=== PATIENT | male | born 1945 ===

== ENCOUNTER 2025-04-13 10:54 | Emergency (ER) | payer OTHER, SELFPAY ==
--- NOTE | ~2025-04-13 | XR_ITS ---
CLINICAL HISTORY: pain, swelling Radiographs of the left hand, 3 views, 4 images Comparison: None available Findings: No fracture or dislocation. No cortical destruction or periostitis to indicate osteomyelitis. Mild degenerative change. Soft tissue swelling. Impression: No acute osseous abnormality. This document has been electronically signed by: Eloise Schrader MD on 04/13/2025 14:35:24
[2025-04-13 11:02] VITALS: BP 164/102; BP 170/78; PULSE 76; PULSE 83; RESP 16; TEMP 36.8; O2SAT 97; O2SAT 98; BMI 26.9
[2025-04-13 11:19] VITALS: BP 170/78; PULSE 83; RESP 16; TEMP 36.8; O2SAT 97
--- NOTE | 2025-04-13 11:59 | ED.GENADULT ---
HPI - General Adult General Chief complaint: Extremity Problem Stated complaint: L HAND SWELLING,NO INJURY FROM SKILLED NURSING PER EMS Time Seen by Provider: 04/13/25 11:05 Source: patient, RN notes reviewed and old records reviewed Mode of arrival: EMS Limitations: no limitations History of Present Illness ED Provider: BRAYAN Mayes HPI narrative: 80-year-old male with medical history of HTN, HLD, TIA, cerebral infarction without residual deficits, gout, presents to the ED due to pain, warmth and swelling to the left hand for the past 2 days. Patient states swelling began after eating tuna fish which he is allergic to and believes this is what is causing his symptoms. Denies injury/trauma to the area. Denies chest pain, shortness of breath, abdominal pain, nausea, vomiting, fevers MD complaint: L hand pain Related Data Home Medications ?Medication ?Instructions ?Recorded ?Confirmed allopurinol 100 mg tablet 100 mg PO DAILY@79904/13/25 04/13/25 aspirin 81 mg tablet 81 mg PO DAILY@79904/13/25 04/13/25 atorvastatin 80 mg tablet 80 mg PO DAILY@199904/13/25 04/13/25 docusate sodium 100 mg capsule 100 mg PO DAILY PRN Constipation 04/13/25 04/13/25 furosemide 40 mg tablet 40 mg PO DAILY@79904/13/25 04/13/25 hydralazine 50 mg tablet 50 mg PO TID@0800,1200,199904/13/25 04/13/25 tamsulosin 0.4 mg capsule 0.4 mg PO DAILY@0800 04/13/25 04/13/25 Previous Rx's ?Medication ?Instructions ?Recorded cephalexin 500 mg capsule 500 mg PO BID 7 days #14 caps 04/13/25 prednisone 20 mg tablet 40 mg (2 x 20 mg) PO BID 5 days 04/13/25 #20 tabs Allergies Allergy/AdvReac Type Severity Reaction Status Date / Time shellfish derived (shellfish) Allergy Swelling Verified 04/13/25 11:09 [facility] Past Medical History Attestation statement: The following information was validated with the patient. Source: old records reviewed and nursing notes reviewed Social History Social History Smoked in Last 30 Days: No Use of substances other than those prescribed or required for medical reasons: No Advance Directives: No Advance Directives Information Provided: Yes Do you have a plan to hurt others: No Plan Physical Exam ED Vital Signs: Vital Signs - 24 hr 04/13/25 11:02 04/13/25 11:19 Temperature 98.2 F 98.2 F Pulse Rate 83 83 Respiratory Rate 16 16 Blood Pressure 170/78 H 170/78 H Pulse Oximetry 97 97 Oxygen Delivery Method Room Air Room Air BMI result Body Mass Index 26.9 GENERAL APPEARANCE: ?AxOx4, generally well-appearing, no acute distress. HEENT: ?NC, AT. MMM. EOMI, clear conjunctiva, oropharynx clear. NECK: ?Supple without lymphadenopathy.? No stiffness or restricted ROM. HEART:? Normal rate and regular rhythm, normal S1/S2, no m/r/g LUNGS:? CTAB, moving air well. No crackles or wheezes are heard. ABDOMEN: ?Soft, nontender, nondistended with good bowel sounds heard. BACK: No CVAT, no obvious deformity. EXTREMITIES: ?Without cyanosis, clubbing or edema. TTP of dorsal L hand, with warmth, mild erythema and edema most significant over 2nd/3rd MCP region, ROM intact but has significant pain when attempting to flex the fingers, SILT, radial pulse 2+ NEUROLOGICAL: ?Grossly nonfocal. Alert and oriented, moving all 4 extremities. Observed to ambulate with normal gait. Skin: ?Warm and dry without any rash. Medications Administered Discontinued Medications Generic Name Dose Route Start Last Admin Trade Name Freq PRN Reason Stop Dose Admin Acetaminophen 975 mg 04/13/25 15:28 04/13/25 16:06 Acetaminophen 325 Mg Tablet PO 04/13/25 15:29 975 mg ONCE ONE Administration Lactated Ringer's 1,000 mls @ 500 mls/hr 04/13/25 15:32 04/13/25 16:06 Lr IV 04/13/25 17:31 500 mls/hr .Q2H ONE Administration Prednisone 40 mg 04/13/25 15:28 04/13/25 16:06 Prednisone 20 Mg Tablet PO 04/13/25 15:29 40 mg ONCE ONE Administration Medical Decision Making Medical Decision Making MDM Narrative: 80-year-old male with medical history of presents to the ED due to pain, warmth and swelling to the left hand for the past 2 days which began after eating tuna fish that he is allergic to and believes is causing his symptoms. Has warmth to the area, and pain when flexing the fingers. Labs without leukocytosis/leukopenia, H&H stable, ESR and CRP WNL, creatinine elevated at 1.57, I did obtain records from [facility] that show creatinine was 1.39 in 07/2019, according to KDIGO MAGDALENA definition this is not a significant elevation showing MAGDALENA- patient was given gentle fluids for hydration. XR L hand negative for fracture, dislocation, however does show mild degenerative changes, and soft tissue swelling. Patient will be discharged with 7 day course of Keflex, and 5 day course of prednisone to cover for cellulitis, or possible gout. Patient afebrile, no elevated WBC count, is able to range the hand, less likely septic arthritis. Patient states when he has gout flare it is usually in his large toe and knee, has never had gout in the hand before. ROM is intact, opposition intact, SILT. Patient was medicated with 975 mg of p.o. Tylenol, 40 mg prednisone with some relief of his symptoms. Patient does not have a primary care doctor to follow up with at this time. I counseled patient on strict return precautions. Patient is in agreement with the plan Differential Diagnosis Differential Diagnoses: The differential diagnosis associated with the presentation includes Septic arthritis Gout Cellulitis Admission/Observation Consideration of admission/observation: Escalation of care including admission/observation considered Lab Data MDM Lab Attestation statement: I reviewed the patient's lab results. 04/13/25 13:33 04/13/25 13:17 Labs: Lab Results 04/13/25 04/13/25 Range/Units 13:17 13:33 WBC 7.2 (4.8-10.8) X10*3/uL RBC 3.98 L (4.60-5.80) X10*6/uL Hgb 12.3 L (14.0-18.0) g/dl Hct 37.6 L (42.0-52.0) % MCV 94.5 (80.0-98.0) fL MCH 30.9 (27.0-33.0) pg MCHC 32.7 (31.0-36.0) g/dl RDW 13.5 (11.0-16.0) % Plt Count 163 (160-400) X10*3/uL MPV 10.4 (9.4-12.4) fL Immature Gran % (Auto) 0.4 (0.0-0.4) % Neut % (Auto) 69.5 (45-73) % Lymph % (Auto) 17.4 L (20-40) % Bacon % (Auto) 9.3 (2-11) % Eos % (Auto) 3.0 (0-4) % Baso % (Auto) 0.4 (0-2) % Lymph # (Auto) 1.3 (1.2-4.9) X10*3/uL Bacon # (Auto) 0.7 (0.1-1.2) X10*3/uL Eos # (Auto) 0.2 (0.0-0.4) X10*3/uL Baso # (Auto) 0.0 (0.0-0.2) X10*3/uL Abs Immat Gran (auto) 0.03 (0.00-0.03) X10*3/uL Absolute Neuts (auto) 5.0 (2.0-8.3) x10*3/uL Absolute Nucleated RBC 0.000 (0.0-0.012) X10*3/uL Nucleated RBC % (auto) 0.0 (0.0-0.2) /100WBC ESR 15 (0-15) MM/HR Sodium 139 (135-145) mmol/L Potassium 4.1 (3.3-5.1) mmol/L Chloride 109 H (96-108) mmol/L Carbon Dioxide 22 (22-29) mmol/L Anion Gap 12 (12-20) BUN 32 H (9-16) mg/dL Creatinine 1.57 H (0.5-1.4) mg/dL Estim Creat Clear Calc 31.5 Estimated GFR 43 Random Glucose 92 (60-115) mg/dL Calcium 8.9 (8.4-10.2) mg/dL Magnesium 2.5 (1.6-2.6) mg/dL Total Bilirubin 0.4 (0.0-1.0) mg/dL AST 20 (5-37) U/L ALT 13 (0-40) U/L Alkaline Phosphatase 65 (39-117) U/L C-Reactive Protein 0.27 (< or = 0.50) mg/dL C-React Prot High Sens Cancelled Total Protein 7.3 (6.5-8.0) g/dL Albumin 3.6 (3.5-5.0) g/dL Independent Interpretation I performed an independent interpretation of an: Plain X-Ray Interpretation: I personally interpreted the XR L hand which was negative for fracture, dislocation, large joint effusion, I agree with the radiologist's interpretation Radiology Impression Discussion of test interpretation with radiology: I have reviewed the radiologist's reading. Radiologist Impression: XR L hand Findings: No fracture or dislocation. No cortical destruction or periostitis to indicate osteomyelitis. Mild degenerative change. Soft tissue swelling. Impression: No acute osseous abnormality. This document has been electronically signed by: Eloise Schrader MD on 04/13/2025 14:35:24 Dictated By: Eloise Mercedes MD Signed By: <Electronically signed by Eloise Mercedes MD in OV> 04/13/25 1436 Independent Historian Clinical information obtained from an independent historian. History obtained from or confirmed by: EMS External Record Review External record reviewed: Inpatient record, Office record and Outpatient record Chronic Conditions Patient?s care impacted by: Hypertension and Other (HLD, TIA, cerebral infarction without residual deficits, gout) Social Determinants Patient?s care significantly limited by Social Determinants of Health including: Other Social Determinant of Health Discharge Plan Discharge Clinical Impression: Gout, Cellulitis Patient Disposition: Home, Self-Care Additional Instructions: You were evaluated in the ED today due to pain of the left hand. You are being prescribed a 7 day course of Keflex which is an antibiotic to cover for infection, and a 5 day course of 40 mg prednisone to cover for inflammation. Additionally, you can take 500 mg of Tylenol every 6 hours to manage pain at home. Please return to the emergency department if you have worsening pain in left hand, increasing warmth, redness, stiffness in the hand, inability to move the hand, loss of sensation in the hand, chest pain, shortness of breath, fevers over 100.4?, or any new/worsening/concerning symptoms. Prescriptions: New cephalexin 500 mg capsule 500 mg PO BID 7 Days Qty: 14 0RF prednisone 20 mg tablet 40 mg PO BID 5 Days Qty: 20 0RF No Action furosemide 40 mg Tablet 40 mg PO DAILY@0800 atorvastatin 80 mg Tablet 80 mg PO DAILY@2000 allopurinol 100 mg tablet 100 mg PO DAILY@0800 tamsulosin 0.4 mg Capsule 0.4 mg PO DAILY@0800 docusate sodium 100 mg Capsule 100 mg PO DAILY PRN (Reason: Constipation) hydralazine 50 mg Tablet 50 mg PO TID@0800,1200,2000 aspirin 81 mg Tablet 81 mg PO DAILY@0800 Print Language: Citizen [place]
--- OUTSIDE RECORDS SUMMARY | 2025-04-13 12:08 | XMS_ITS | Encounter Summary ---
Author Organization [facility] Address [address] [place] [address] Care Team Providers Care Aeronautics Teacher Name Role Phone Luis Enrique Elliott Primary Care Provider [phone] Encounter Details Date Type Department Care Team (Late st Contact Info) Description 12/31/2024 Lab Requisition [facility] - Main Lab [address] [facility] [place] [address] Luis Enrique Elliott PA PCCP [address] [facility] [address] [place], [place] [id number] Essential (primary) hypertension; Chronic kidney disease, unspecified; Benign prostatic hyperplasia without lower urinary tract symptoms; Vitamin D deficiency, unspecified; Hypothyroidism, unspecified; Type 2 diabetes mellitus without complications ([facility] V24, [facility] V28) Social History Tobacco Use Types Packs/Day Years Used Date Smoking Tobacco: Never Assessed Interpersonal Safety Answer Date Record ed Physical Abuse 01/04/2025 Verbal Abuse 01/04/2025 Sex and Gender Information Value Date Recorded Sex Assigned at Not on file Legal Sex Male 3:04 AM EST Gender Identity Not on file Sexual Orientation Not on file documented as of this encounter Plan of Treatment Not on file documented as of this encounter Procedures Procedure Name Priority Date/Time Associated Diagnosis Comments BASIC METABOLIC PANEL Routine 01/01/2025 6:58 AM EDT Essential (primary) hypertension Chronic kidney disease, unspecified Benign prostatic hyperplasia without lower urinary tract symptoms Vitamin D deficiency, unspecified Hypothyroidism, unspecified Type 2 diabetes mellitus without complications (CMS/[facility] V24, [facility] V28) documented in this encounter Results * (ABNORMAL) Basic metabolic panel (01/01/2025 6:58 AM EDT) Sodium 141 133 - 145 mmol/L LAB CHEMISTRY METHOD 01/01/2025 8:41 AM [facility] Potassium 3.8 3.5 - 5.5 mmol/L LAB CHEMISTRY METHOD 01/01/2025 8:41 AM [facility] Chloride 107 96 - 110 mmol/L LAB CHEMISTRY METHOD 01/01/2025 8:41 AM [facility] CO2 29 21 - 32 mmol/L LAB CHEMISTRY METHOD 01/01/2025 8:41 AM [facility] Anion Gap 5 3 - 11 LAB CHEMISTRY METHOD 01/01/2025 8:41 AM [facility] Glucose 85 70 - 100 mg/dL LAB CHEMISTRY METHOD 01/01/2025 8:41 AM [facility] BUN 37(H) 5 - 25 mg/dL LAB CHEMISTRY METHOD 01/01/2025 8:41 AM [facility] Creatinine 1.75(H) 0.70 - 1.30 mg/dL LAB CHEMISTRY METHOD 01/01/2025 8:41 AM [facility] eGFR 39(L) >=60 mL/min/1. 73m2 LAB CHEMISTRY METHOD 01/01/2025 8:41 AM [facility] Comment:Calculation based on the Chronic Kidney Disease Epidemiology Collaboration (CKD-EPI) equation refit without adjustment for race. BUN/Creatinine Ratio 21.1 LAB CHEMISTRY METHOD 01/01/2025 8:41 AM [facility] Calcium 9.1 8.5 - 10.5 mg/dL LAB CHEMISTRY METHOD 01/01/2025 8:41 AM [facility] Blood Venous blood specimen / Unknown Venipuncture / Unknown 01/01/2025 6:58 AM EDT 01/01/2025 7:55 AM EDT Luis Enrique ART LAB BLOOD ORDERABLES Rachael l Result [facility] [address] [place] [address], documented in this encounter Visit Diagnoses Diagnosis Essential (primary) hypertension Unspecified essential hypertension Chronic kidney disease, unspecified Benign prostatic hyperplasia without lower urinary tract symptoms Vitamin D deficiency, unspecified Hypothyroidism, unspecified Type 2 diabetes mellitus without complications (CMS/HCC V24, CMS/HCC V28) documented in this encounter Care Teams Aeronautics Teacher Relationship Specialty Start Date End Date Luis Enrique Elliott PA [facility] [address] [facility] [address] [place] [address] PCP - General Physician Allergist/Pediatric Pulmonologist 12/11/24 documented as of this encounter
--- OUTSIDE RECORDS SUMMARY | 2025-04-13 12:08 | XMS_ITS | Encounter Summary ---
Author Organization [facility] [address] Care Team Providers Care Production Gear Cutter Name Role Phone Luis Enrique Elliott Primary Care Provider [phone] Encounter Details Date Type Department Care Team (Late st Contact Info) Description 01/29/2025 Lab Requisition [facility] - Main Lab [address] [facility] [place] [id number] Levi Fuentes MD [address] [place] [address] Heart failure, unspecified (CMS/HCC V24, CMS/HCC V28) Social History Tobacco Use Types Packs/Day Years Used Date Smoking Tobacco: Unknown Interpersonal Safety Answer Date Record ed Physical [...] Procedure Name Priority Date/Time Associated Diagnosis Comments COMPREHENSIVE METABOLIC PANEL Routine 01/29/2025 6:31 AM EDT Heart failure, unspecified (CMS/HCC V24, CMS/HCC V28) documented in this encounter Results * (ABNORMAL) Comprehensive metabolic panel (01/29/2025 6:31 AM EDT) Sodium 142 133 - 145 mmol/L LAB CHEMISTRY METHOD 01/29/2025 9:01 AM [facility] Potassium 4.1 3.5 - 5.5 mmol/L LAB CHEMISTRY METHOD 01/29/2025 9:01 AM [facility] Chloride 106 96 - 110 mmol/L LAB CHEMISTRY METHOD 01/29/2025 9:01 AM [facility] CO2 32 21 - 32 mmol/L LAB CHEMISTRY METHOD 01/29/2025 9:01 AM [facility] Anion Gap 4 3 - 11 LAB CHEMISTRY METHOD 01/29/2025 9:01 AM [facility] Glucose 74 70 - 100 mg/dL LAB CHEMISTRY METHOD 01/29/2025 9:01 AM [facility] BUN 40(H) 5 - 25 mg/dL LAB CHEMISTRY METHOD 01/29/2025 9:01 AM [facility] Creatinine 1.84(H) 0.70 - 1.30 mg/dL LAB CHEMISTRY METHOD 01/29/2025 9:01 AM [facility] eGFR 36(L) >=60 mL/min/1. 73m2 LAB CHEMISTRY METHOD 01/29/2025 9:01 AM [facility] Comment:Calculation based on the Chronic Kidney Disease Epidemiology Collaboration (CKD-EPI) equation refit without adjustment for race. BUN/Creatinine Ratio 21.7 LAB CHEMISTRY METHOD 01/29/2025 9:01 AM [facility] Calcium 8.7 8.5 - 10.5 mg/dL LAB CHEMISTRY METHOD 01/29/2025 9:01 AM [facility] AST (SGOT) 10 10 - 42 unit/L LAB CHEMISTRY METHOD 01/29/2025 9:01 AM [facility] ALT (SGPT) 17 10 - 60 unit/L LAB CHEMISTRY METHOD 01/29/2025 9:[address] [facility] Alkaline Phosphatase 57 42 - 121 unit/L LAB CHEMISTRY METHOD 01/29/2025 9:[address] [facility] Total Protein 6.6 6.0 - 8.0 g/dL LAB CHEMISTRY METHOD 01/29/2025 9:[address] [facility] Albumin 3.3 3.2 - 5.0 g/dL LAB CHEMISTRY METHOD 01/29/2025 9:[address] [facility] Total Bilirubin 0.3 0.0 - 1.4 mg/dL LAB CHEMISTRY METHOD 01/29/2025 9:[address] [facility] Blood Venous blood specimen / Unknown Venipuncture / Unknown 01/29/2025 6:31 AM EDT 01/29/2025 7:38 AM EDT us Levi Fuentes MD LAB BLOOD ORDERABLES Final Result [facility] [address] [place] [address], documented in this encounter Visit Diagnoses Diagnosis Heart failure, unspecified (CMS/HCC V24, CMS/HCC V28) Heart failure, unspecified documented in this encounter Care Teams Production Gear Cutter Relationship Specialty Start Date End Date Luis Enrique Elliott PA [address] [address] PCP - General Physician Editor Continuity And Script 12/11/24 documented as of this encounter
--- OUTSIDE RECORDS SUMMARY | 2025-04-13 12:09 | XMS_ITS | Clinical Summary ---
Author Organization [address] [facility] Address [address] [place] [address] Phone Care Team Providers Care Cone Tender Name Role Phone Luis Enrique Elliott Primary Care Provider [phone] [phone] Allergies Active Allergy Reactions Criticality Noted Date Comments Shellfish Containing Products 2024 Tomato 01/03/2025 Medications aspirin 81 mg EC tablet Take 1 tablet (81 mg total) by mouth 1 (one) time each day. 10/02/2024 Active atorvastatin (LIPITOR) 80 mg tablet Take 1 tablet (80 mg total) by mouth at bedtime. 07/07/2022 Active furosemide (LASIX) 40 mg tablet Take 1 tablet (40 mg total) by mouth 1 (one) time each day. 30 each 01/10/2025 Active hydrALAZINE (APRESOLINE) 50 mg tablet Take 1 tablet (50 mg total) by mouth 3 (three) times a day. 90 each 01/09/2025 6 Active Active Problems Problem Noted Date Diagnosed Date Acute heart failure (CMS/HCC V24, CMS/HCC V28) 0 01/04/2025 Encounters Date Type Department Care Team Description 01/29/2025 Lab Requisition [facility] - Main Lab [address] [facility] [place] [address] Levi Fuentes MD Heart failure, unspecified (CMS/HCC V24, [facility] V28) from Last 3 Months Medical History Medical History Date Comments BPH (benign prostatic hyperplasia) 04/04/2018 DX:BPH (benign prostatic hyperplasia) Gout 06/21/2018 DX:Gout History of stroke 04/04/2018 DX:History of stroke Hyperlipidemia 06/21/2018 DX:Hyperlipidemi a Hypertension 06/21/2018 DX:Hypertension Social History Tobacco Use Types Packs/Day Years Used Date Smoking Tobacco: Unknown Tobacco Cessation:Counseling Given: Not Answered Interpersonal Safety Answer Date Record ed Physical Abuse 01/04/2025 Verbal Abuse 01/04/2025 Sex and Gender Information Value Date Recorded Sex Assigned at Not on file Legal Sex Male 3:04 AM EST Gender Identity Not on file Sexual Orientation Not on file Obstetrics History Last Filed Vital Signs Vital Sign Reading Time Taken Comments Blood Pressure 161/62 01/09/2025 3:22 PM EDT Pulse 79 01/09/2025 3:22 PM EDT Temperature 36.7 C (98 F) 01/09/2025 3:22 PM EDT Respiratory Rate 16 01/09/2025 3:22 PM EDT Oxygen Saturation 98% 01/09/2025 3:22 PM EDT Inhaled Oxygen Concentration - - Weight 65.2 kg (143 lb 12.8 oz) 01/09/2025 2:58 AM EDT Height 167.6 cm (5' 6 ) 01/04/2025 6:46 AM EDT Body Mass Index 23.21 01/04/2025 6:46 AM EDT Plan of Treatment Health Maintenance Due Date Last Done Comments RSV Immunization Adult Patients (1 - 1-dose 75+ series) 2018 Pneumococcal Vaccine: 50+ Years (2 of 2 - PPSV23) 09/24/2019 07/30/2019, 08/20/2010 Depression Screening 07/25/2024 Medicare Annual Wellness Visit 08/19/2024 Social Influencers of Health Screening 08/19/2024 COVID-19 Vaccine ( - season) 2025 10/13/2021, 11/06/2020, 10/09/2020 Influenza Vaccine (#1) 2025 , 07/25/2022, 04/08/2021, Additional history exists Falls Risk Assessment 01/09/2026 01/09/2025 Hypertension/CHF/CAD Annual BMP Blood Test 01/29/2026 01/29/2025, 01/09/2025, 01/08/2025, Additional history exists Cholesterol Screening (Lipid Panel) 12/11/2029 12/11/2024 DTaP,Tdap,and Td Vaccines (4 - Td or Tdap) 02/04/2031 02/04/2021, 10/29/2010, 10/29/2010 Zoster Vaccines Completed 04/08/2021, 02/04/2021 HIB Vaccines Aged Out No longer eligi ble based on patient's age to complete this topic HPV Vaccines Aged Out No longer eligi ble based on patient's age to complete this topic Hepatitis A Vaccines Aged Out No long er eligible based on patient's age to complete this topic Hepatitis B Vaccines Aged Out No long er eligible based on patient's age to complete this topic IPV Vaccines Aged Out No longer eligi ble based on patient's age to complete this topic MMR Vaccines Aged Out No longer eligi ble based on patient's age to complete this topic Meningococcal ACWY Vaccine Aged Out N o longer eligible based on patient's age to complete this topic Meningococcal B Vaccine Aged Out No l onger eligible based on patient's age to complete this topic RSV Immunization Patients Under 20 months Aged Out No longer eligible based on patient's age to complete this topic Varicella Vaccines Aged Out No longer eligible based on patient's age to complete this topic Procedures Procedure Name Priority Date/Time Associated Diagnosis Comments COMPREHENSIVE METABOLIC PANEL Routine 01/29/2025 6:31 AM EDT Heart failure, unspecified (CMS/HCC V24, CMS/HCC V28) LIPID PANEL WITH REFLEX TO DIRECT LDL Routine 12/11/2024 6:52 AM EDT Essential (primary) hypertension Chronic kidney disease, unspecified Gout, unspecified Atherosclerotic heart disease of [place] coronary artery without angina pectoris Benign prostatic hyperplasia without lower urinary tract symptoms Type 2 diabetes mellitus without complications (CMS/HCC V24, CMS/HCC V28) Hypothyroidism, unspecified Vitamin D deficiency, unspecified from Last 3 Months or Most Recently Relevant to Health Maintenance Results * (ABNORMAL) Comprehensive metabolic panel (01/29/2025 [...] 01/29/2025 9:01 AM [facility] Alkaline Phosphatase 57 42 - 121 unit/L LAB CHEMISTRY METHOD 01/29/2025 9:01 AM [facility] Total Protein 6.6 6.0 - 8.0 g/dL LAB CHEMISTRY METHOD 01/29/2025 9:01 AM [facility] Albumin 3.3 3.2 - 5.0 g/dL LAB CHEMISTRY METHOD 01/29/2025 9:01 AM [facility] Total Bilirubin 0.3 0.0 - 1.4 mg/dL LAB CHEMISTRY METHOD 01/29/2025 9:01 AM [facility] Blood Venous blood specimen / Unknown Venipuncture / Unknown 01/29/2025 6:31 AM EDT 01/29/2025 7:38 AM EDT Levi Fuentes MD LAB BLOOD ORDERABLES Final Result [facility] [address] [place] [address], * Lipid panel with reflex to direct LDL (12/11/2024 6:52 AM EDT) Cholesterol 145 0 - 200 mg/dL LAB CHEMISTRY METHOD 12/11/2024 9:07 AM [facility] Triglycerides 31 0 - 150 mg/dL LAB CHEMISTRY METHOD 12/11/2024 9:07 AM [facility] HDL 92 >=40 mg/dL LAB CHEMISTRY METHOD 12/11/2024 9:07 AM [facility] LDL Calculated 47 0 - 100 mg/dL LAB CHEMISTRY METHOD 12/11/2024 9:07 AM [facility] VLDL Cholesterol Timmy 6.2 mg/dL LAB CHEMISTRY METHOD 12/11/2024 9:07 AM [facility] Non HDL Chol. (LDL+VLDL) 53 <145 mg/dL LAB CHEMISTRY METHOD 12/11/2024 9:07 AM EDT [facility] Chol/HDL Ratio 1.6 0.0 - 4.4 LAB CHEMISTRY METHOD 12/11/2024 9:07 AM EDT [facility] Blood Venous blood specimen / Unknown Venipuncture / Unknown 12/11/2024 6:52 AM EDT 12/11/2024 7:43 AM EDT us Luis Enrique ART LAB BLOOD ORDERABLES Rachael l Result [facility] [address] [place] [address], [place] [phone] from Last 3 Months or Most Recently Relevant to Health Maintenance Insurance on file Advance Directives Documents on File Type Date Recorded Patient Nurse Office Expl anation Advance Directives and Living Will 01/07/2025 10:36 AM Bruce Reyna Health Care Proxy * Full Code - Default (Latest Code Status on File) Date Activated Date Inactivated Comments 01/04/2025 7:29 AM 01/09/2025 9:08 PM This is orde r is used when code status has not been discussed with the patient, or code status is otherwise unknown/unconfirmed To update the patient's code status, place a code status order. Do not modify or discontinue any currently active code status orders. Healthcare Agents on File Name Relationship Healthcare Agent Relationshi p Communication Brucetashia Reyna Son Health Care Agent Janette Garcia Relative First Alternate Health Care Agent Care Teams Cone Tender Relationship Specialty Start Date End Date Luis Enrique Elliott PA [facility] [address] [address] PCP - General Physician Software Clerk 12/11/24
--- OUTSIDE RECORDS SUMMARY | 2025-04-13 12:09 | XMS_ITS | Encounter Summary ---
Author Organization [facility] [address] Care Team Providers Care Wardrobe Specialty Worker Name Role Phone Luis Enrique Elliott Primary Care Provider [phone] Encounter Details Date Type Department Care Team (Late st Contact Info) Description 12/19/2024 Lab Requisition [facility] - Main Lab [address] [facility] [place] [id number] Levi Fuentes MD [address] [place] [address] Essential (primary) hypertension; Benign prostatic hyperplasia without lower urinary tract symptoms Social History Tobacco Use Types Packs/Day Years Used Date Smoking Tobacco: Never Assessed Sex and Gender Information Value Date Recorded Sex Assigned at Not on file Legal Sex Male 3:04 AM EST Gender Identity Not on file Sexual Orientation Not on file documented as of this encounter Plan of Treatment Not on file documented as of this encounter Procedures Procedure Name Priority Date/Time Associated Diagnosis Comments PROSTATE SPECIFIC ANTIGEN DIAGNOSTIC Routine 12/19/2024 7:00 AM EDT Essential (primary) hypertension Benign prostatic hyperplasia without lower urinary tract symptoms documented in this encounter Results * Prostate specific antigen diagnostic (12/19/2024 7:00 AM EDT) PSA 2.48 0.00 - 4.00 ng/mL LAB CHEMISTRY METHOD 12/19/2024 1:20 PM EDT [facility] Blood Venous blood specimen / Unknown Venipuncture / Unknown 12/19/2024 7:00 AM EDT 12/19/2024 10:10 AM EDT Narrative [facility] - 12/19/2024 1:20 PM EDT The Siemens Advia Centaur Chemiluminescent Immunoassay is used. Results obtained with different assay methods or kits cannot be used interchangeably. Results cannot be interpreted as absolute evidence of the presence or absence of malignant disease. us Levi Fuentes MD LAB BLOOD ORDERABLES Final Result [facility] [address] [place] [address], documented in this encounter Visit Diagnoses Diagnosis Essential (primary) hypertension Unspecified essential hypertension Benign prostatic hyperplasia without lower urinary tract symptoms documented in this encounter Care Teams Wardrobe Specialty Worker Relationship Specialty Start Date End Date Luis Enrique Elliott PA [facility] [address] [facility] [address] [place] [address] PCP - General Physician Sales Center Associate 12/11/24 documented as of this encounter
--- OUTSIDE RECORDS SUMMARY | 2025-04-13 12:09 | XMS_ITS | Encounter Summary ---
Author Organization [facility] [address] Address [address] [place] [address] Care Team Providers Care Machine Icer Name Role Phone Luis Enrique Elliott Primary Care Provider [phone] Encounter Details Date Type Department Care Team (Late st Contact Info) Description 12/11/2024 Lab Requisition [facility] - Main Lab 299 [facility] [place] [address] Luis Enrique Elliott PA [facility] [address] [facility] [address] [place] [address] Essential (primary) hypertension; Chronic kidney disease, unspecified; Gout, unspecified; Atherosclerotic heart disease of [place] coronary artery without angina pectoris; Benign prostatic hyperplasia without lower urinary tract symptoms; Type 2 diabetes mellitus without complications (CMS/HCC V24, CMS/HCC V28); Hypothyroidism, unspecified; Vitamin D deficiency, unspecified Social History Tobacco Use Types Packs/Day Years [...] Procedure Name Priority Date/Time Associated Diagnosis Comments LIPID PANEL WITH REFLEX TO DIRECT LDL Routine 12/11/2024 6:52 AM EDT Essential (primary) hypertension Chronic kidney disease, unspecified Gout, unspecified Atherosclerotic heart disease of [place] coronary artery without angina pectoris Benign prostatic hyperplasia without lower urinary tract symptoms Type 2 diabetes mellitus without complications (CMS/HCC V24, CMS/[facility] V28) Hypothyroidism, unspecified Vitamin D deficiency, unspecified VITAMIN D 25 HYDROXY Routine 12/11/2024 6:52 AM EDT Essential (primary) hypertension Chronic kidney disease, unspecified Gout, unspecified Atherosclerotic heart disease of [place] coronary artery without angina pectoris Benign prostatic hyperplasia without lower urinary tract symptoms Type 2 diabetes mellitus without complications (CMS/HCC V24, CMS/[facility] V28) Hypothyroidism, unspecified Vitamin D deficiency, unspecified COMPLETE BLOOD COUNT Routine 12/11/2024 6:52 AM EDT Essential (primary) hypertension Chronic kidney disease, unspecified Gout, unspecified Atherosclerotic heart disease of [place] coronary artery without angina pectoris Benign prostatic hyperplasia without lower urinary tract symptoms Type 2 diabetes mellitus without complications (CMS/HCC V24, CMS/[facility] V28) Hypothyroidism, unspecified Vitamin D deficiency, unspecified THYROID STIMULATING HORMONE Routine 12/11/2024 6:52 AM EDT Essential (primary) hypertension Chronic kidney disease, unspecified Gout, unspecified Atherosclerotic heart disease of [place] coronary artery without angina pectoris Benign prostatic hyperplasia without lower urinary tract symptoms Type 2 diabetes mellitus without complications (CMS/HCC V24, CMS/[facility] V28) Hypothyroidism, unspecified Vitamin D deficiency, unspecified HEMOGLOBIN A1C Routine 12/11/2024 6:52 AM EDT Essential (primary) hypertension Chronic kidney disease, unspecified Gout, unspecified Atherosclerotic heart disease of [place] coronary artery without angina pectoris Benign prostatic hyperplasia without lower urinary tract symptoms Type 2 diabetes mellitus without complications (CMS/HCC V24, CMS/[facility] V28) Hypothyroidism, unspecified Vitamin D deficiency, unspecified COMPREHENSIVE METABOLIC PANEL Routine 12/11/2024 6:52 AM EDT Essential (primary) hypertension Chronic kidney disease, unspecified Gout, unspecified Atherosclerotic heart disease of [place] coronary artery without angina pectoris Benign prostatic hyperplasia without lower urinary tract symptoms Type 2 diabetes mellitus without complications (CMS/HCC V24, CMS/[facility] V28) Hypothyroidism, unspecified Vitamin D deficiency, unspecified documented in this encounter Results * (ABNORMAL) Vitamin D 25 hydroxy (12/11/2024 6:52 AM EDT) Vit D, 25-Hydroxy 17.2(L) 30.0 - 80.0 ng/mL LAB CHEMISTRY METHOD 12/11/2024 10:21 AM EDT [facility] Blood Venous blood specimen / Unknown Venipuncture / Unknown 12/11/2024 6:52 AM EDT 12/11/2024 7:43 AM EDT Luis Enrique ART LAB BLOOD ORDERABLES Rachael l Result Performing Organization Address [facility]/ZIP Co de Phone Number [facility] [address] [place] [address], [place] [phone] * Hemoglobin A1c (12/11/2024 6:52 AM EDT) Pathologist [facility] [place] Hemoglobin A1C 5.3 <6.5 % LAB CHEMISTRY METHOD 12/14/2024 8:50 AM EDT [facility] Mean Bld Glu Estim. 105 mg/dL LAB CHEMISTRY METHOD 12/14/2024 8:50 AM EDT [facility] Blood Venous blood specimen / Unknown Venipuncture / Unknown 12/11/2024 6:52 AM EDT 12/11/2024 7:43 AM EDT Luis Enrique ART LAB BLOOD ORDERABLES Rachael l Result Performing Organization Address City/[facility]/ZIP Co de Phone Number [facility] [address] [place] [address], [place] [phone] * Thyroid stimulating hormone (12/11/2024 6:52 AM EDT) Pathologist [facility] [place] TSH 2.06 0.40 - 4.00 mcIU/mL LAB CHEMISTRY METHOD 12/11/2024 10:21 AM EDT [facility] Blood Venous blood specimen / Unknown Venipuncture / Unknown 12/11/2024 6:52 AM EDT 12/11/2024 7:43 AM EDT Luis Enrique ART LAB BLOOD ORDERABLES Rachael l Result [facility] [address] [place] [address], [place] [phone] * Lipid panel with reflex to direct LDL (12/11/2024 6:52 AM EDT) Cholesterol 145 0 - 200 mg/dL LAB CHEMISTRY METHOD 12/11/2024 9:07 AM EDT [facility] Triglycerides 31 0 - 150 mg/dL LAB CHEMISTRY METHOD 12/11/2024 9:07 AM [facility] HDL 92 >=40 mg/dL LAB CHEMISTRY METHOD [facility]24 [facility] LDL Calculated 47 0 - 100 mg/dL LAB CHEMISTRY METHOD 12/11/2024 9:07 AM [facility] VLDL Cholesterol Timmy 6.2 mg/dL LAB CHEMISTRY METHOD 12/11/2024 9:07 AM [facility] Non HDL Chol. (LDL+VLDL) 53 <145 mg/dL LAB CHEMISTRY METHOD 12/11/2024 9:07 AM [facility] Chol/HDL Ratio 1.6 0.0 - 4.4 LAB CHEMISTRY METHOD 12/11/2024 9:07 AM [facility] Blood Venous blood specimen / Unknown Venipuncture / Unknown 12/11/2024 6:52 AM EDT 12/11/2024 7:43 AM EDT Luis Enrique ART LAB BLOOD ORDERABLES Rachael l Result [facility] [address] [place] [address], [place] [phone] * (ABNORMAL) Comprehensive metabolic panel (12/11/2024 6:52 AM EDT) Sodium 142 133 - 145 mmol/L LAB CHEMISTRY METHOD 12/11/2024 9:01 AM [facility] Potassium 4.7 3.5 - 5.5 mmol/L LAB CHEMISTRY METHOD 12/11/2024 9:01 AM [facility] Chloride 107 96 - 110 mmol/L LAB CHEMISTRY METHOD 12/11/2024 9:01 AM [facility] CO2 32 21 - 32 mmol/L LAB CHEMISTRY METHOD 12/11/2024 9:01 AM [facility] Anion Gap 3 3 - 11 LAB CHEMISTRY METHOD 12/11/2024 9:01 AM [facility] Glucose 83 70 - 100 mg/dL LAB CHEMISTRY METHOD 12/11/2024 9:01 AM [facility] BUN 26(H) 5 - 25 mg/dL LAB CHEMISTRY METHOD 12/11/2024 9:01 AM [facility] Creatinine 1.36(H) 0.70 - 1.30 mg/dL LAB CHEMISTRY METHOD 12/11/2024 9:01 AM [facility] eGFR 52(L) >=60 mL/min/1. 73m2 LAB CHEMISTRY METHOD 12/11/2024 9:01 AM [facility] Comment:Calculation based on the Chronic Kidney Disease Epidemiology Collaboration (CKD-EPI) equation refit without adjustment for race. BUN/Creatinine Ratio 19.1 LAB CHEMISTRY METHOD 12/11/2024 9:01 AM [facility] Calcium 9.2 8.5 - 10.5 mg/dL LAB CHEMISTRY METHOD 12/11/2024 9:01 AM [facility] AST (SGOT) 15 10 - 42 unit/L LAB CHEMISTRY METHOD 12/11/2024 9:01 AM EDT [facility] ALT (SGPT) 19 10 - 60 unit/L LAB CHEMISTRY METHOD 12/11/2024 9:01 AM [facility] Alkaline Phosphatase 65 42 - 121 unit/L LAB CHEMISTRY METHOD 12/11/2024 9:01 AM [facility] Total Protein 6.8 6.0 - 8.0 g/dL LAB CHEMISTRY METHOD 12/11/2024 9:01 AM [facility] Albumin 3.4 3.2 - 5.0 g/dL LAB CHEMISTRY METHOD 12/11/2024 9:01 AM [facility] Total Bilirubin 0.3 0.0 - 1.4 mg/dL LAB CHEMISTRY METHOD 12/11/2024 9:01 AM [facility] Blood Venous blood specimen / Unknown Venipuncture / Unknown 12/11/2024 6:52 AM EDT 12/11/2024 7:43 AM EDT Luis Enrique ART LAB BLOOD ORDERABLES Rachael l Result [facility] [address] [place] [address], * (ABNORMAL) Complete blood count (12/11/2024 6:52 AM EDT) WBC 5.6 4.8 - 10.8 K/[facility] HEMETOLOGY METHOD 12/11/2024 8:33 AM [facility] RBC 4.10(L) 4.50 - 5.50 M/[facility] HEMETOLOGY METHOD 12/11/2024 8:33 AM [facility] Hemoglobin 13.0(L) 13.5 - 17.5 g/dL LAB HEMETOLOGY METHOD 12/11/2024 8:33 AM [facility] Hematocrit 41.0(L) 42.0 - 54.0 % LAB HEMETOLOGY METHOD 12/11/2024 8:33 AM EDT [facility] MCV 100.0(H) 79.0 - 98.0 FL LAB HEMETOLOGY METHOD 12/11/2024 8:33 AM EDT [facility] MCH 31.7 27.0 - 32.0 pcg LAB HEMETOLOGY METHOD 12/11/2024 8:33 AM EDT [facility] MCHC 31.7(L) 32.0 - 37.0 g/dL LAB HEMETOLOGY METHOD 12/11/2024 8:33 AM EDT [facility] RDW 13.4 11.0 - 15.0 % LAB HEMETOLOGY METHOD 12/11/2024 8:33 AM EDT [facility] Platelets 178 130 - 400 K/mcL LAB HEMETOLOGY METHOD 12/11/2024 8:33 AM EDT [facility] MPV 10.8 7.0 - 11.0 FL LAB HEMETOLOGY METHOD 12/11/2024 8:33 AM EDT [facility] NRBC 0.0 <1.0 % LAB HEMETOLOGY METHOD 12/11/2024 8:33 AM EDT [facility] NRBC Absolute 0.00 <0.10 K/mcL LAB HEMETOLOGY METHOD 12/11/2024 8:33 AM EDT [facility] Blood Venous blood specimen / Unknown Venipuncture / Unknown 12/11/2024 6:52 AM EDT 12/11/2024 7:43 AM EDT us Luis Enrique ART LAB BLOOD ORDERABLES Rachael l Result [facility] [address] [place] [address], documented in this encounter Visit Diagnoses Diagnosis Essential (primary) hypertension Unspecified essential hypertension Chronic kidney disease, unspecified Gout, unspecified Atherosclerotic heart disease of [place] coronary artery without angina pectoris Benign prostatic hyperplasia without lower urinary tract symptoms Type 2 diabetes mellitus without complications ([facility] V24, [facility] V28) Hypothyroidism, unspecified Vitamin D deficiency, unspecified documented in this encounter Care Teams Machine Icer Relationship Specialty Start Date End Date Luis Enrique Elliott PA [facility] [address] [place] [address] PCP - General Physician Rod And Tube Straightener 12/11/24 documented as of this encounter
[2025-04-13 13:37] LABS: MANUAL DIFF FLAG NO
[2025-04-13 13:38] LABS: Hematocrit 37.6 % (42.0-52.0); Hemoglobin 12.3 g/dl (14.0-18.0); Imm Gran Abs Auto 0.03 X10*3/uL (0.00-0.03); Imm Gran Pct Auto 0.4 % (0.0-0.4); Lymphocytes Absolute Auto 1.3 X10*3/uL (1.2-4.9); Mean Corpuscular HGB Conc 32.7 g/dl (31.0-36.0); Mean Corpuscular Hemoglobin 30.9 pg (27.0-33.0); Mean Corpuscular Volume 94.5 fL (80.0-98.0); NRBC Abs Auto 0.000 X10*3/uL (0.0-0.012); NRBC Pct Auto 0.0 /100WBC (0.0-0.2); Platelet Count 163 X10*3/uL (160-400); Red Blood Count 3.98 X10*6/uL (4.60-5.80); White Blood Count 7.2 X10*3/uL (4.8-10.8)
[2025-04-13 13:44] LABS: Alanine Aminotransferase 13 U/L (0-40); Albumin Level 3.6 g/dL (3.5-5.0); Alkaline Phosphatase 65 U/L (39-117); Anion Gap 12 (12-20); Aspartate Amino Transferase 20 U/L (5-37); Blood Urea Nitrogen 32 mg/dL (9-16); Calcium 8.9 mg/dL (8.4-10.2); Carbon Dioxide 22 mmol/L (22-29); Chloride 109 mmol/L (96-108); Creatinine Clr Calc Pharmacy 31.5; Estimated Glomerular Filt Rate 43; Magnesium 2.5 mg/dL (1.6-2.6); Potassium 4.1 mmol/L (3.3-5.1); Sodium 139 mmol/L (135-145); Total Protein 7.3 g/dL (6.5-8.0)
--- NOTE | 2025-04-13 15:47 | PHA.MEDREC ---
Pharmacy Consult ? Medication Reconciliation Pharmacy has completed the medication reconciliation using med list from [facility] [id number].
[2025-04-13] MEDS: Lactated Ringers 1,000 ML 500 ML IV (16:06)
[2025-04-13 21:10] VITALS: BP 181/86; PULSE 78; RESP 16; TEMP -17.7; TEMP 0; O2SAT 96
--- NOTE | 2025-04-17 06:59 | PC.NURSE ---
Late Entry: MAR corrected to reflect time of IVF infusion.
== END 2025-04-13 21:11 | disposition home or self-care (01) ==
PROVIDERS: Emergency Provider Emergency Medicine
DX: L03.114 Cellulitis of left upper limb (principal); M10.9 Gout, unspecified; M79.89 Other specified soft tissue disorders; M79.642 Pain in left hand
CPT/HCPCS: 36415; 73130; 80053; 83735; 85025; 85652; 86140; 86141; 96360; 96361; 99284; J7120

== ENCOUNTER → 2025-04-13 12:44 | Outpatient (BNV) | payer MEDICARE, SELFPAY | PROVIDERS: Emergency Provider Emergency Medicine; Visit Provider Radiology Diagnostic Radiology | DX: M79.642 Pain in left hand (principal); R22.32 Localized swelling, mass and lump, left upper limb | CPT/HCPCS: 73130 ==

== ENCOUNTER 2025-06-23 08:33 | Emergency (ER) | payer OTHER, SELFPAY ==
[2025-06-23] VITALS (7 sets, daily range): BP systolic 180–199; BP diastolic 71–98; PULSE 66–72; RESP 16–18; TEMP 36.3–37.2; O2SAT 97–100; BMI 24.2
--- NOTE | ~2025-06-23 | XR_ITS ---
CLINICAL HISTORY: right knee pain swelling 5 view right knee Comparison: None provided Findings: Bones intact. No dislocations. Mild tricompartmental degenerative changes. No joint effusion. No radiopaque foreign body. Soft tissue swelling with a small suprapatellar joint effusion. Prominent arterial calcifications. There are multiple calcifications in the region of the quadriceps tendon attachment to the patella which can be seen with calcific tendinitis. IMPRESSION: 1. Soft tissue swelling with a small joint effusion. 2. No acute fracture or dislocation. 3. Mild degenerative changes. 4. Probable calcific quadriceps tendinitis. This document has been electronically signed by: Michelle Rivera DO on 06/23/2025 12:04:12
--- OUTSIDE RECORDS SUMMARY | 2025-06-23 09:14 | XMS_ITS | Encounter Summary ---
Author Organization [facility] Address [address] [place] [address] Care Team Providers Care Professional Housing Consultant Name Role Phone Luis Enrique Elliott Primary Care Provider [phone] [phone] Encounter Details Date Type Department Care Team (Late st Contact Info) Description 01/29/2025 Lab Requisition [facility] - Main Lab [address] [facility] [place] [id number] Levi Fuentes MD [address] [place] [address] Heart failure, unspecified (CMS/HCC V24, CMS/HCC V28) Social History Tobacco Use Types Packs/Day Years Used Date Smoking Tobacco: Unknown Interpersonal Safety Answer Date Record ed Physical Abuse Unrecognized value 01/04/2025 Verbal Abuse Unrecognized value 01/04/2025 Sex and Gender Information Value Date [...] mmol/L LAB CHEMISTRY METHOD 01/29/2025 9:[address] [facility] Potassium 4.1 3.5 - 5.5 mmol/L LAB CHEMISTRY METHOD 01/29/2025 9:[address] [facility] Chloride 106 96 - 110 mmol/L LAB CHEMISTRY METHOD 01/29/2025 9:[address] [facility] CO2 32 21 - 32 mmol/L LAB CHEMISTRY METHOD 01/29/2025 9:[address] [facility] Anion Gap 4 3 - 11 LAB CHEMISTRY METHOD 01/29/2025 9:[address] [facility] Glucose 74 70 - 100 mg/dL LAB CHEMISTRY METHOD 01/29/2025 9:[address] [facility] BUN 40(H) 5 - 25 mg/dL LAB CHEMISTRY METHOD 01/29/2025 9:[address] [facility] Creatinine 1.84(H) 0.70 - 1.30 mg/dL LAB CHEMISTRY METHOD 01/29/2025 9:[address] [facility] eGFR 36(L) >=60 mL/min/1. 73m2 LAB CHEMISTRY METHOD 01/29/2025 9:[address] [facility] Comment:Calculation based on the Chronic Kidney Disease Epidemiology Collaboration (CKD-EPI) equation refit without adjustment for race. BUN/Creatinine Ratio 21.7 LAB CHEMISTRY METHOD 01/29/2025 9:[address] [facility] Calcium 8.7 8.5 - 10.5 mg/dL LAB CHEMISTRY METHOD 01/29/2025 9:[address] [facility] AST (SGOT) 10 10 - 42 unit/L LAB CHEMISTRY METHOD 01/29/2025 9:[address] [facility] ALT (SGPT) 17 10 - 60 unit/L LAB CHEMISTRY METHOD 01/29/2025 9:01 AM EDT [facility] Alkaline Phosphatase 57 42 - 121 unit/L LAB CHEMISTRY METHOD 01/29/2025 9:01 AM T [facility] Total Protein 6.6 6.0 - 8.0 g/dL LAB CHEMISTRY METHOD 01/29/2025 9:01 AM T [facility] Albumin 3.3 3.2 - 5.0 g/dL LAB CHEMISTRY METHOD 01/29/2025 9:01 AM T [facility] Total Bilirubin 0.3 0.0 - 1.4 mg/dL LAB CHEMISTRY METHOD 01/29/2025 9:01 AM T [facility] Blood Venous blood specimen / Unknown Venipuncture / Unknown 01/29/2025 6:31 AM EDT 01/29/2025 7:38 AM EDT us Levi Fuentes MD LAB BLOOD ORDERABLES Final Result [facility] [address] [place] [address], documented in this encounter Visit Diagnoses Diagnosis Heart failure, unspecified (CMS/HCC V24, CMS/HCC V28) Heart failure, unspecified documented in this encounter Care Teams Professional Housing Consultant Relationship Specialty Start Date End Date Luis Enrique Elliott PA [address] [address] PCP - General Physician Pattern Hand 12/11/24 documented as of this encounter
--- OUTSIDE RECORDS SUMMARY | 2025-06-23 09:14 | XMS_ITS | Encounter Summary ---
Author Organization [facility] Address [address] [place] [address] Care Team Providers Care Hide Stretcher Hand Name Role Phone Luis Enrique Elliott Primary Care Provider [phone] [phone] Encounter Details Date Type Department Care Team (Late st Contact Info) Description 12/19/2024 Lab Requisition [facility] - Main Lab [address] [facility] [place] [phone] Levi Fuentes MD [address] [place] [address] Essential (primary) hypertension; Benign prostatic hyperplasia without [...] LAB CHEMISTRY METHOD 12/19/2024 1:20 PM EDT [facility] Blood Venous blood specimen / Unknown Venipuncture / Unknown 12/19/2024 7:00 AM EDT 12/19/2024 10:10 AM EDT Narrative [facility] - 12/19/2024 1:20 PM EDT The Siemens Advia Centaur Chemiluminescent Immunoassay is used. Results obtained with different assay methods or kits cannot be used interchangeably. Results cannot be interpreted as absolute evidence of the presence or absence of malignant disease. us Levi Fuentes MD LAB BLOOD ORDERABLES Final Result [facility] [address] [place] [address], documented in this encounter Visit Diagnoses Diagnosis Essential (primary) hypertension Unspecified essential hypertension Benign prostatic hyperplasia without lower urinary tract symptoms documented in this encounter Care Teams Hide Stretcher Hand Relationship Specialty Start Date End Date Luis Enrique Elliott PA [facility] [address] [facility] [address] [place] [address] PCP - General Physician Holter Scanning Technician 12/11/24 documented as of this encounter
--- OUTSIDE RECORDS SUMMARY | 2025-06-23 09:14 | XMS_ITS | Encounter Summary ---
Author Organization [facility] Address [address] [place] [address] Care Team Providers Care Adzing And Boring Machine Feeder Name Role Phone Luis Enrique Elliott Primary Care Provider [phone] [phone] Encounter Details Date Type Department Care Team (Late st Contact Info) Description 12/11/2024 Lab Requisition [facility] - Main Lab [address] [facility] [place] [address] Luis Enrique Elliott PA [facility] [address] [facility] [address] [place] [address] Essential (primary) hypertension; Chronic kidney disease, unspecified; Gout, unspecified; Atherosclerotic heart disease of [place] coronary artery without angina pectoris; Benign prostatic [...] unspecified Gout, unspecified Atherosclerotic heart disease of [place] coronary artery without angina pectoris Benign prostatic hyperplasia without lower urinary tract symptoms Type 2 diabetes mellitus without complications (CMS/HCC V24, CMS/[facility] V28) Hypothyroidism, unspecified Vitamin D deficiency, unspecified VITAMIN D 25 HYDROXY Routine 12/11/2024 6:52 AM EDT Essential (primary) hypertension Chronic kidney disease, unspecified Gout, unspecified Atherosclerotic heart disease of [place] coronary artery without angina pectoris Benign prostatic hyperplasia without lower urinary tract symptoms Type 2 diabetes mellitus without complications (CMS/HCC V24, CMS/[facility] V28) Hypothyroidism, unspecified Vitamin D deficiency, unspecified COMPLETE BLOOD COUNT Routine 12/11/2024 6:52 AM EDT Essential (primary) hypertension Chronic kidney disease, unspecified Gout, unspecified Atherosclerotic heart disease of [place] coronary artery without angina pectoris Benign prostatic hyperplasia without lower urinary tract symptoms Type 2 diabetes mellitus without complications (CMS/HCC V24, CMS/[facility] V28) Hypothyroidism, unspecified Vitamin D deficiency, unspecified THYROID STIMULATING HORMONE Routine 12/11/2024 6:52 AM EDT Essential (primary) hypertension Chronic kidney disease, unspecified Gout, unspecified Atherosclerotic heart disease of [place] coronary artery without angina pectoris Benign prostatic hyperplasia without lower urinary tract symptoms Type 2 diabetes mellitus without complications (CMS/HCC V24, CMS/[facility] V28) Hypothyroidism, unspecified Vitamin D deficiency, unspecified HEMOGLOBIN A1C Routine 12/11/2024 6:52 AM EDT Essential (primary) hypertension Chronic kidney disease, unspecified Gout, unspecified Atherosclerotic heart disease of [place] coronary artery without angina pectoris Benign prostatic hyperplasia without lower urinary tract symptoms Type 2 diabetes mellitus without complications (CMS/HCC V24, CMS/[facility] V28) Hypothyroidism, unspecified Vitamin D deficiency, unspecified COMPREHENSIVE METABOLIC PANEL Routine 12/11/2024 6:52 AM EDT Essential (primary) hypertension Chronic kidney disease, unspecified Gout, unspecified Atherosclerotic heart disease of [place] coronary artery without angina pectoris Benign prostatic hyperplasia without lower urinary tract symptoms Type 2 diabetes mellitus without complications (CMS/HCC V24, CMS/[facility] V28) Hypothyroidism, unspecified Vitamin D deficiency, unspecified documented in this encounter Results * (ABNORMAL) Vitamin D 25 hydroxy (12/11/2024 6:52 AM EDT) Vit D, 25-Hydroxy 17.2(L) 30.0 - 80.0 ng/mL LAB CHEMISTRY METHOD 12/11/2024 10:21 AM EDT [facility] Blood Venous blood specimen / Unknown Venipuncture / Unknown 12/11/2024 6:52 AM EDT 12/11/2024 7:43 AM EDT Luis Enrique ART LAB BLOOD ORDERABLES Rachael l Result Performing Organization Address [facility]/ZIP Co de Phone Number [facility] [address] [place] [address], [place] [phone] * Hemoglobin A1c (12/11/2024 6:52 AM EDT) Pathologist [facility] Hemoglobin A1C 5.3 <6.5 % LAB CHEMISTRY METHOD 12/14/2024 8:50 AM EDT [facility] Mean Bld Glu Estim. 105 mg/dL LAB CHEMISTRY METHOD 12/14/2024 8:50 AM EDT [facility] Blood Venous blood specimen / Unknown Venipuncture / Unknown 12/11/2024 6:52 AM EDT 12/11/2024 7:43 AM EDT Luis Enrique ART LAB BLOOD ORDERABLES Rachael l Result Performing Organization Address City/[facility]/ZIP Co de Phone Number [facility] [address] [place] [address], [place] [phone] * Thyroid stimulating hormone (12/11/2024 6:52 AM EDT) Pathologist [facility] TSH 2.06 0.40 - 4.00 mcIU/mL LAB CHEMISTRY METHOD 12/11/2024 10:21 AM EDT [facility] Blood Venous blood specimen / Unknown Venipuncture / Unknown 12/11/2024 6:52 AM EDT 12/11/2024 7:43 AM EDT Luis Enrique ART LAB BLOOD ORDERABLES Rachael l Result [facility] [address] [place] [address], [place] [phone] * Lipid panel with reflex to direct LDL (12/11/2024 6:52 AM EDT) Cholesterol 145 0 - 200 mg/dL LAB CHEMISTRY METHOD 12/11/2024 9:07 AM EDT [facility] Triglycerides 31 0 - 150 mg/dL LAB CHEMISTRY METHOD 12/11/2024 9:07 AM [facility] HDL 92 >=40 mg/dL [facility] LDL Calculated 47 0 - 100 mg/dL LAB CHEMISTRY METHOD 12/11/2024 9:07 AM [facility] VLDL Cholesterol Timmy 6.2 mg/dL LAB CHEMISTRY METHOD 12/11/2024 9:07 AM [facility] Non HDL Chol. (LDL+VLDL) 53 <145 mg/dL LAB CHEMISTRY METHOD 12/11/2024 9:07 AM [facility] Chol/HDL Ratio 1.6 0.0 - 4.4 LAB CHEMISTRY METHOD 12/11/2024 9:07 AM [facility] Blood Venous blood specimen / Unknown Venipuncture / Unknown 12/11/2024 6:52 AM EDT 12/11/2024 7:43 AM EDT Luis Enrique ART LAB BLOOD ORDERABLES Rachael l Result [facility] [address] [place] [address], [place] [phone] * (ABNORMAL) Comprehensive metabolic panel (12/11/2024 6:52 AM EDT) Sodium 142 133 - 145 mmol/L LAB CHEMISTRY METHOD 12/11/2024 9:01 AM [facility] Potassium 4.7 3.5 - 5.5 mmol/L LAB CHEMISTRY METHOD 12/11/2024 9:01 AM [facility] Chloride 107 96 - 110 mmol/L LAB CHEMISTRY METHOD 12/11/2024 9:01 AM [facility] CO2 32 21 - 32 mmol/L LAB CHEMISTRY METHOD 12/11/2024 9:01 AM [facility] Anion Gap 3 3 - 11 LAB CHEMISTRY METHOD 12/11/2024 9:01 AM [facility] Glucose 83 70 - 100 mg/dL LAB CHEMISTRY METHOD 12/11/2024 9:01 AM [facility] BUN 26(H) 5 - 25 mg/dL LAB CHEMISTRY METHOD 12/11/2024 9:01 AM [facility] Creatinine 1.36(H) 0.70 - 1.30 mg/dL LAB CHEMISTRY METHOD 12/11/2024 9:01 AM [facility] eGFR 52(L) >=60 mL/min/1. 73m2 LAB CHEMISTRY METHOD 12/11/2024 9:01 AM [facility] Comment:Calculation based on the Chronic Kidney Disease Epidemiology Collaboration (CKD-EPI) equation refit without adjustment for race. BUN/Creatinine Ratio 19.1 LAB CHEMISTRY METHOD 12/11/2024 9:01 AM [facility] Calcium 9.2 8.5 - 10.5 mg/dL LAB CHEMISTRY METHOD 12/11/2024 9:01 AM [facility] AST (SGOT) 15 10 - 42 unit/L LAB CHEMISTRY METHOD 12/11/2024 9:01 AM EDT [facility] ALT (SGPT) 19 10 - 60 unit/L LAB CHEMISTRY METHOD 12/11/2024 9:01 AM [facility] Alkaline Phosphatase 65 42 - 121 unit/L LAB CHEMISTRY METHOD 12/11/2024 9:01 AM [facility] Total Protein 6.8 6.0 - 8.0 g/dL LAB CHEMISTRY METHOD 12/11/2024 9:01 AM [facility] Albumin 3.4 3.2 - 5.0 g/dL LAB CHEMISTRY METHOD 12/11/2024 9:01 AM [facility] Total Bilirubin 0.3 0.0 - 1.4 mg/dL LAB CHEMISTRY METHOD 12/11/2024 9:01 AM [facility] Blood Venous blood specimen / Unknown Venipuncture / Unknown 12/11/2024 6:52 AM EDT 12/11/2024 7:43 AM EDT Luis Enrique ART LAB BLOOD ORDERABLES Rachael l Result [facility] [address] [place] [address], * (ABNORMAL) Complete blood count (12/11/2024 6:52 AM EDT) WBC 5.6 4.8 - 10.8 K/[facility] LAB HEMETOLOGY METHOD 12/11/2024 8:33 AM [facility] RBC 4.10(L) 4.50 - 5.50 M/[facility] LAB HEMETOLOGY METHOD 12/11/2024 8:33 AM [facility] Hemoglobin 13.0(L) 13.5 - 17.5 g/dL LAB HEMETOLOGY METHOD 12/11/2024 8:33 AM [facility] Hematocrit 41.0(L) 42.0 - 54.0 % LAB HEMETOLOGY METHOD 12/11/2024 8:33 AM EDT [facility] MCV 100.0(H) 79.0 - 98.0 FL LAB HEMETOLOGY METHOD 12/11/2024 8:33 AM EDT [facility] MCH 31.7 27.0 - 32.0 pcg LAB HEMETOLOGY METHOD 12/11/2024 8:33 AM EDT [facility] MCHC 31.7(L) 32.0 - 37.0 g/dL LAB HEMETOLOGY METHOD 12/11/2024 8:33 AM EDT [facility] RDW 13.4 11.0 - 15.0 % LAB HEMETOLOGY METHOD 12/11/2024 8:33 AM EDT [facility] Platelets 178 130 - 400 K/mcL LAB HEMETOLOGY METHOD 12/11/2024 8:33 AM EDT [facility] MPV 10.8 7.0 - 11.0 FL LAB HEMETOLOGY METHOD 12/11/2024 8:33 AM EDT [facility] NRBC 0.0 <1.0 % LAB HEMETOLOGY METHOD 12/11/2024 8:33 AM EDT [facility] NRBC Absolute 0.00 <0.10 K/mcL LAB HEMETOLOGY METHOD 12/11/2024 8:33 AM EDT [facility] Blood Venous blood specimen / Unknown Venipuncture / Unknown 12/11/2024 6:52 AM EDT 12/11/2024 7:43 AM EDT us Luis Enrique ART LAB BLOOD ORDERABLES Rachael l Result [facility] [address] [place] [address], documented in this encounter Visit Diagnoses Diagnosis Essential (primary) hypertension Unspecified essential hypertension Chronic kidney disease, unspecified Gout, unspecified Atherosclerotic heart disease of [place] coronary artery without angina pectoris Benign prostatic hyperplasia without lower urinary tract symptoms Type 2 diabetes mellitus without complications ([facility] V24, [facility] V28) Hypothyroidism, unspecified Vitamin D deficiency, unspecified documented in this encounter Care Teams Adzing And Boring Machine Feeder Relationship Specialty Start Date End Date Luis Enrique Elliott PA [facility] [address] [place] [address] PCP - General Physician Proofer Apprentice 12/11/24 documented as of this encounter
--- OUTSIDE RECORDS SUMMARY | 2025-06-23 09:14 | XMS_ITS | Encounter Summary ---
Author Organization [facility] Address [address] [place] [address] Care Team Providers Care Turbine Subassembler Name Role Phone Luis Enrique Elliott Primary Care Provider +1 [phone] Encounter Details Date Type Department Care Team (Late st Contact Info) Description 12/31/2024 Lab Requisition [facility] - Main Lab [address] [facility] [place] [address] Luis Enrique Elliott PA PCCP [address] [facility] [address] [place], [place] [id number] Essential (primary) hypertension; Chronic kidney disease, unspecified; Benign prostatic hyperplasia without lower urinary tract symptoms; Vitamin D deficiency, unspecified; Hypothyroidism, unspecified; Type 2 diabetes mellitus without complications ([facility] V24, [facility] V28) Social History Tobacco Use Types Packs/Day [...] on file documented as of this encounter Functional Status * Calculated C-SSRS Risk Score (Lifetime/Recent) Answer Date of Assessment Author No Risk Indicated 01/03/2025 8:05 PM CHERRYT Lito Hi RN * [place] Suicide Severity Rating Scale (Screener/Recent Self-Report) Question Answer Date of Assessment Author 1. Wish to be (Past 1 Month) No 025 8:05 PM EDT Lito Hi, MISAEL 2. Non-Specific Active Suici judy Thoughts (Past 1 Month) No 01/03/2025 8:05 PM EDT Matilda Hi RN 6. Suicidal Behavior (Lifetime) No 8:05 PM EDT Lito Hi, MISAEL documented as of this encounter Plan of Treatment Not on file documented as of this encounter Procedures Procedure Name Priority Date/Time Associated Diagnosis Comments BASIC METABOLIC PANEL Routine 01/01/2025 6:58 AM EDT Essential (primary) hypertension Chronic kidney disease, unspecified Benign prostatic hyperplasia without lower urinary tract symptoms Vitamin D deficiency, unspecified Hypothyroidism, unspecified Type 2 diabetes mellitus without complications ([facility] V24, [facility] V28) documented in this encounter Results * (ABNORMAL) Basic metabolic panel (01/01/2025 6:58 AM EDT) Sodium 141 133 - 145 mmol/L LAB CHEMISTRY METHOD 01/01/2025 8:41 AM [facility] Potassium 3.8 3.5 - 5.5 mmol/L LAB CHEMISTRY METHOD 01/01/2025 8:41 AM [facility] Chloride 107 96 - 110 mmol/L LAB CHEMISTRY METHOD 01/01/2025 8:41 AM [facility] CO2 29 21 - 32 mmol/L LAB CHEMISTRY METHOD 01/01/2025 8:41 AM [facility] Anion Gap 5 3 - 11 LAB CHEMISTRY METHOD 01/01/2025 8:41 AM [facility] Glucose 85 70 - 100 mg/dL LAB CHEMISTRY METHOD 01/01/2025 8:41 AM [facility] BUN 37(H) 5 - 25 mg/dL LAB CHEMISTRY METHOD 01/01/2025 8:41 AM [facility] Creatinine 1.75(H) 0.70 - 1.30 mg/dL LAB CHEMISTRY METHOD 01/01/2025 8:41 AM EDT [facility] eGFR 39(L) >=60 mL/min/1. 73m2 LAB CHEMISTRY METHOD 01/01/2025 8:41 AM EDT [facility] Comment:Calculation based on the Chronic Kidney Disease Epidemiology Collaboration (CKD-EPI) equation refit without adjustment for race. BUN/Creatinine Ratio 21.1 LAB CHEMISTRY METHOD 01/01/2025 8:41 AM EDT [facility] Calcium 9.1 8.5 - 10.5 mg/dL LAB CHEMISTRY METHOD 01/01/2025 8:41 AM EDT [facility] Blood Venous blood specimen / Unknown Venipuncture / Unknown 01/01/2025 6:58 AM EDT 01/01/2025 7:55 AM EDT Luis Enrique ART LAB BLOOD ORDERABLES Rachael l Result [facility] [address] [place] [address], documented in this encounter Visit Diagnoses Diagnosis Essential (primary) hypertension Unspecified essential hypertension Chronic kidney disease, unspecified Benign prostatic hyperplasia without lower urinary tract symptoms Vitamin D deficiency, unspecified Hypothyroidism, unspecified Type 2 diabetes mellitus without complications ([facility] V24, CMS/[facility] V28) documented in this encounter Care Teams Turbine Subassembler Relationship Specialty Start Date End Date Luis Enrique Elliott PA [facility] [address] [facility] [address] [place] [address] PCP - General Physician Leather Currier 12/11/24 documented as of this encounter
--- OUTSIDE RECORDS SUMMARY | 2025-06-23 09:14 | XMS_ITS | Clinical Summary ---
Author Organization [address] Address [address] [place] [address] Phone Care Team Providers Care All Round Logger Name Role Phone Luis Enrique Elliott Primary Care Provider [phone] Allergies Active Allergy Reactions Criticality Noted Date [...] 1 (one) time each day. 30 each 11 01/10/2025 Active hydrALAZINE (APRESOLINE) 50 mg tablet Take 1 tablet (50 mg total) by mouth 3 (three) times a day. 90 each 01/09/2025 6 Active Active Problems Problem Noted Date Diagnosed Date Acute heart failure (CMS/HCC V24, CMS/HCC V28) 0 01/04/2025 Medical History Medical History Date Comments BPH [...] Vaccine: 50+ Years (2 of 2 - PPSV23, PCV20, or PCV21) 09/24/2019 07/30/2019, 08/20/2010 Depression Screening 07/25/2024 Medicare Annual Wellness Visit 08/19/2024 Social Influencers of Health Screening 08/19/2024 COVID-19 Vaccine ( season) 2025 10/13/2021, 11/06/2020, 10/09/2020 Influenza Vaccine [...] 01/29/2025 6:31 AM EDT Heart failure, unspecified ([facility] V24, [facility] V28) LIPID PANEL WITH REFLEX TO DIRECT LDL Routine 12/11/2024 6:52 AM EDT Essential (primary) hypertension Chronic kidney disease, unspecified Gout, unspecified Atherosclerotic heart disease of [place] coronary artery without angina pectoris Benign prostatic hyperplasia without lower urinary tract symptoms Type 2 diabetes mellitus without complications (CMS/HCC V24, [facility] V28) Hypothyroidism, unspecified Vitamin D deficiency, unspecified from Last 3 Months or Most Recently Relevant to Health Maintenance Results * (ABNORMAL) Comprehensive metabolic panel (01/29/2025 6:31 AM EDT) Sodium 142 133 - 145 mmol/L LAB CHEMISTRY METHOD 01/29/2025 9:01 AM EDT [facility] Potassium 4.1 3.5 - 5.5 mmol/L LAB CHEMISTRY METHOD 01/29/2025 9:01 AM [facility] Chloride 106 96 - 110 mmol/L LAB CHEMISTRY METHOD 01/29/2025 9:01 AM [facility] CO2 32 21 - 32 mmol/L LAB CHEMISTRY METHOD 01/29/2025 9:01 AM [facility] Anion Gap 4 3 - 11 LAB CHEMISTRY METHOD 01/29/2025 9:01 AM [facility] Glucose 74 70 - 100 mg/dL LAB CHEMISTRY METHOD 01/29/2025 9:01 AM [facility] BUN 40(H) 5 - 25 mg/dL LAB CHEMISTRY METHOD 01/29/2025 9:01 AM [facility] Creatinine 1.84(H) 0.70 - 1.30 mg/dL LAB CHEMISTRY METHOD 01/29/2025 9:01 AM [facility] eGFR 36(L) >=60 mL/min/1. 73m2 LAB CHEMISTRY METHOD 01/29/2025 9:01 AM [facility] Comment:Calculation based on the Chronic Kidney Disease Epidemiology Collaboration (CKD-EPI) equation refit without adjustment for race. BUN/Creatinine Ratio 21.7 LAB CHEMISTRY METHOD 01/29/2025 9:01 AM [facility] Calcium 8.7 8.5 - 10.5 mg/dL LAB CHEMISTRY METHOD 01/29/2025 9:01 AM [facility] AST (SGOT) 10 10 - 42 unit/L LAB CHEMISTRY METHOD 01/29/2025 9:01 AM [facility] ALT (SGPT) 17 10 - 60 unit/L LAB CHEMISTRY METHOD 01/29/2025 9:01 AM [facility] Alkaline Phosphatase 57 42 - 121 unit/L LAB CHEMISTRY METHOD 01/29/2025 9:01 AM [facility] Total Protein 6.6 6.0 - 8.0 g/dL LAB CHEMISTRY METHOD 01/29/2025 9:01 AM [facility] Albumin 3.3 3.2 - 5.0 g/dL LAB CHEMISTRY METHOD 01/29/2025 9:01 AM [facility] Total Bilirubin 0.3 0.0 - 1.4 mg/dL LAB CHEMISTRY METHOD 01/29/2025 9:01 AM [facility] Blood Venous blood specimen / Unknown Venipuncture / Unknown 01/29/2025 6:31 AM EDT 01/29/2025 7:38 AM EDT Levi Fuentes MD LAB BLOOD ORDERABLES Final Result [facility] [address] [place] [address], * Lipid panel with reflex to direct LDL (12/11/2024 6:52 AM EDT) Cholesterol 145 0 - 200 mg/dL LAB CHEMISTRY METHOD 12/11/2024 9:07 AM [facility] Triglycerides 31 0 - 150 mg/dL LAB CHEMISTRY METHOD 12/11/2024 9:07 AM [facility] HDL 92 >=40 mg/dL LAB CHEMISTRY METHOD 12/11/2024 9:07 AM [facility] LDL Calculated 47 0 - 100 mg/dL LAB CHEMISTRY METHOD 12/11/2024 9:07 AM [facility] VLDL Cholesterol Timmy 6.2 mg/dL LAB CHEMISTRY METHOD 12/11/2024 9:07 AM [facility] Non HDL Chol. (LDL+VLDL) 53 <145 mg/dL LAB CHEMISTRY METHOD 12/11/2024 9:07 AM [facility] Chol/HDL Ratio 1.6 0.0 - 4.4 LAB CHEMISTRY METHOD 12/11/2024 9:07 AM EDT [facility] Blood Venous blood specimen / Unknown Venipuncture / Unknown 12/11/2024 6:52 AM EDT 12/11/2024 7:43 AM EDT Luis Enrique ART LAB BLOOD ORDERABLES Rachael l Result [facility] [address] [place] [address], from Last 3 Months or Most Recently Relevant to Health Maintenance Insurance [employer] on file Advance Directives Documents on File Type Date Recorded Patient Administrative Office Manager Expl anation Advance Directives and Living Will 01/07/2025 10:36 AM [facility]cet[facility] Health Care Proxy * Full Code - [...] First Alternate Health Care Agent Care Teams All Round Logger Relationship Specialty Start Date End Date Luis Enrique Elliott PA [address] [address] PCP - General Physician Staff Counselor 12/11/24
--- NOTE | 2025-06-23 09:19 | ED_ITS ---
HPI - General Adult General Chief complaint: Extremity Problem Stated complaint: R KNEE PAIN X2D, DIFF AMB FROM SNF PER EMS Time Seen by Provider: 06/23/25 08:58 Source: patient, EMS, RN notes reviewed and old records reviewed Mode of arrival: EMS Limitations: physical limitation History of Present Illness ED Provider: Lio HPI narrative: Patient is a an 80-year-old male presenting to the emergency department from [facility]dc facility via EMS for 2 days of right knee pain. Patient denies fall or other trauma. States that he typically ambulates with a walker at baseline. He feels that his right knee is significantly warmer than the left. Took Tylenol this morning. Pain worse with movement and palpation, minimal at rest. MD complaint: knee pain Onset (ago): day(s) Related Data Home Medications ?Medication ?Instructions ?Recorded ?Confirmed allopurinol 100 mg tablet 100 mg PO DAILY@0800 5 06/23/25 atorvastatin 80 mg tablet 80 mg PO DAILY@199904/13/25 06/23/25 docusate sodium 100 mg capsule 100 mg PO BID PRN Const ipation 04/13/25 06/23/25 furosemide 40 mg tablet 40 mg PO DAILY@0800 04/13/25 06/23/25 hydralazine 50 mg tablet 50 mg PO TID@0800,1200,199904/13/25 06/23/25 tamsulosin 0.4 mg capsule 0.4 mg PO DAILY@0800 5 06/23/25 aspirin 81 mg tablet,delayed 81 mg PO DAILY@0800 06/2306/23/25 release Allergies Allergy/AdvReac Type Severity Reaction Status Date / Time shellfish derived (shellfish) Allergy Swelling Verified 06/23/25 08:44 Review of Systems 2 Review of Systems: As per HPI Yes all other systems are reviewed and are negative Constitutional: Constitutional: Reports as per HPI Physical Exam ED Vital Signs: Vital Signs - 24 hr 06/24/25 14:00 06/24/25 15:57 06/24/25 17:23 Temperature 97.3 F 98.4 F Pulse Rate 73 68 Respiratory Rate 18 18 Blood Pressure 195/99 H 195/99 H 170/88 H Pulse Oximetry 94 98 Oxygen Delivery Method Room Air Room Air 06/24/25 20:47 06/25/25 05:56 06/25/25 08:38 Temperature 98.7 F Pulse Rate 74 Respiratory Rate 20 Blood Pressure 170/88 H 188/87 H 180/80 H Pulse Oximetry 100 Oxygen Delivery Method Room Air 06/25/25 08:41 Temperature Pulse Rate Respiratory Rate Blood Pressure 180/80 H Pulse Oximetry Oxygen Delivery Method BMI result Body Mass Index 24.2 Vital signs have been reviewed and appear to be correct. Blood pressure elevated. Heart rate normal. Respiratory rate normal. Temperature normal. Oxygen saturation normal. Const General: cooperative and no acute distress Orientation/consciousness: oriented to person, oriented to place, oriented to time and patient oriented x3 Limitations: no limitations HENMT Head: Yes normocephalic and Yes atraumatic Ears: external ears normal General nose exam: Normal external nose present Face and sinus: Yes face symmetric Mouth: oropharynx normal and moist mucous membranes Throat: Yes uvula midline Eyes Pupils: Equal, round and reactive pupils present Neck Neck: Yes normal visual inspection and Yes supple Resp Effort & Inspection: normal respiratory effort and able to speak in complete sentences Auscultation: clear to auscultation bilaterally Cardio Rate: regular rate Rhythm: regular rhythm Heart sounds: S1 normal heart sound present and S2 normal heart sound present GI Palpation (GI): Soft to palpation and nontender Auscultation: normoactive bowel sounds General: Yes no CVA tenderness Back/Spine/Pelvis Back: no CVA tenderness Skin General skin exam: elasticity normal and turgor normal Neuro General: oriented to person, oriented to place, oriented to time, patient oriented x3, moves all extremities, no focal motor deficits and CN's II-XI intact bilaterally Cranial nerves: Yes Equal, round and reactive pupils present Cognition (Neuro): normal cognition Extrem General: Yes full ROM, Yes no calf tenderness and Yes pedal edema (1+ pitting) Right lower extremity: knee Details: normal to inspection, tenderness Location: of the infrapatellar area, normal ROM and knee ligament exam normal; no swelling, no ecchymosis and no unusual warmth and foot Details: normal capillary refill, toes with normal ROM and vascular exam Details: dorsalis pedis pulse present, posterior tibial pulse present and normal capillary refill Psych Mental Status: mental status grossly normal Affect: normal affect Thought process: Normal thought process present Course Course Course Narrative: 3:44 PM 06/23/2025 (Ami Vaca [facility]MIST [facility]ZYMES): Upon EMS arrival to transport patient back to his assisted living facility, patient was unable to weight bear on right leg. Assisted living facility stating they cannot receive patient if he is unable to weight bear. Will place patient on physician observation and order PT and case management evaluation. Reevaluation(s) Reevaluation #1: Time: 14:02 Date: 06/24/25 Provider: RUBENS Maddox Patient in physician observation for case management needs. No acute events reported overnight.? Was seen by Physical therapy, recommending rehab. Awaiting case management disposition. We will continue to monitor. Time: 10:19am Date: 06/25/25 Provider: Michi Mayes PA-C Patient in physician observation for case management needs. No acute events reported overnight. Patient to be discharged to [facility] for 11am for STR needs. Will continue to monitor as we await transportation. Medications Administered Generic Name Dose Route Start Last Admin Trade Name Freq PRN Reason Stop Dose Admin Acetaminophen 975 mg 06/24/25 21:05 06/24/25 21:20 Acetaminophen 325 Mg Tablet PO 975 mg Q6H PRN Administration pain,moderate Allopurinol 100 mg 06/24/25 08:00 06/25/25 08:38 Allopurinol 100 Mg Tablet PO 100 mg DAILY@0800 DIO Administration Aspirin 81 mg 06/24/25 08:00 06/25/25 08:38 Aspirin Enteric Coated 81 Mg Tablet.Dr PO 81 mg DAILY@0800 DIO Administration Atorvastatin Calcium 80 mg 06/23/25 20:00 06/24/25 20:21 Atorvastatin Calcium 80 Mg Tablet PO 80 mg DAILY@1999 DIO Administration Furosemide 40 mg 06/24/25 08:00 06/25/25 08:38 Furosemide 40 Mg Tablet PO 40 mg DAILY@08 DIO Administration Protocol Hydralazine HCl 50 mg 06/23/25 20:00 06/25/25 08:41 Hydralazine Hcl 50 Mg Tablet PO 50 mg TID@0800,1199,1999 DIO Administration Protocol Tamsulosin HCl 0.4 mg 06/24/25 08:00 06/25/25 08:38 Tamsulosin Hcl 0.4 Mg Capsule PO 0.4 mg DAILY@0800 DIO Administration Discontinued Medications Generic Name Dose Route Start Last Admin Trade Name Marquis PRN Reason Stop Dose Admin Acetaminophen 975 mg 06/24/25 05:54 06/24/25 06:02 Acetaminophen 325 Mg Tablet PO 06/24/25 05:55 975 mg ONCE ONE Administration Melatonin 9 mg 06/24/25 23:22 06/24/25 23:28 Melatonin 3 Mg Tablet PO 06/24/25 23:23 9 mg ONCE ONE Administration Potassium Chloride 20 meq 06/23/25 10:11 06/23/25 10:22 Potassium Chloride Er 20 Meq Tab.Er.Prt PO 06/23/25 10:12 20 meq ONCE ONE Administration Trazodone HCl 50 mg 06/24/25 23:22 06/24/25 23:28 Trazodone Hcl 50 Mg Tablet PO 06/24/25 23:23 50 mg ONCE ONE Administration Medical Decision Making Medical Decision Making [facility] Narrative: Patient is a an 80-year-old male presenting to the emergency department from fdc facility via EMS for 2 days of right knee pain. On exam patient is awake, A+Ox3, VS WNL, afebrile, normal neurological exam without focal deficits, physical exam findings as above. Given reported symptoms and physical exam findings, initial differential includes but is not limited to osteoarthritis, effusion, strain. Do not suspect septic joint. No appreciable temperature difference between lower extremities, no erythema to right knee, full passive ROM. Labs notable for no leukocytosis, slightly elevated ESR/CRP. X-ray right knee notable for small effusion, no acute fracture. My interpretation is in agreement with the radiologist's interpretation. Results discussed with patient and all questions answered. GAVI wrap applied in the ED. Recommended elevation, Tylenol, ortho follow up. Return precautions discussed. Patient verbalized understanding of and agreement with plan. Differential Diagnosis Differential Diagnoses: The differential diagnosis associated with the presentation includes as per [facility] Admission/Observation Consideration of admission/observation: Escalation of care including admission/observation considered Patient would have been admitted to the hospital and transferred to appropriate facility had their clinical presentation warranted hospital admission. Lab Data [facility] Lab Attestation statement: I reviewed the patient's lab results. as per [facility] 06/23/25 09:20 06/23/25 09:20 Labs: Lab Results 06/23/25 06/24/25 Range/Units 09:20 09:36 WBC 7.8 (4.8-10.8) X10*3/uL RBC 4.07 L (4.60-5.80) X10*6/uL Hgb 12.5 L (14.0-18.0) g/dl Hct 38.5 L (42.0-52.0) % MCV 94.6 (80.0-98.0) fL MCH 30.7 (27.0-33.0) pg MCHC 32.5 (31.0-36.0) g/dl RDW 13.7 (11.0-16.0) % Plt Count 167 (160-400) X10*3/uL MPV 10.9 (9.4-12.4) fL Immature Gran % (Auto) 0.4 (0.0-0.4) % Neut % (Auto) 73.0 (45-73) % Lymph % (Auto) 15.0 L (20-40) % [place] % (Auto) 11.0 (2-11) % Eos % (Auto) 0.3 (0-4) % Baso % (Auto) 0.3 (0-2) % Lymph # (Auto) 1.2 (1.2-4.9) X10*3/uL [place] # (Auto) 0.9 (0.1-1.2) X10*3/uL Eos # (Auto) 0.0 (0.0-0.4) X10*3/uL Baso # (Auto) 0.0 (0.0-0.2) X10*3/uL Abs Immat Gran (auto) 0.03 (0.00-0.03) X10*3/uL Absolute Neuts (auto) 5.7 (2.0-8.3) x10*3/uL Absolute Nucleated RBC 0.000 (0.0-0.012) X10*3/uL Nucleated RBC % (auto) 0.0 (0.0-0.2) /100WBC ESR 17 H (0-15) MM/HR Sodium 143 (135-145) mmol/L Potassium 3.1 L D (3.3-5.1) mmol/L Chloride 108 (96-108) mmol/L Carbon Dioxide 26 (22-29) mmol/L Anion Gap 12 (12-20) BUN 27 H (9-16) mg/dL Creatinine 1.43 H (0.5-1.4) mg/dL Estim Creat Clear Calc 35.9 Estimated GFR 47 Random Glucose 101 (60-115) mg/dL Calcium 9.1 (8.4-10.2) mg/dL Total Bilirubin 0.6 (0.0-1.0) mg/dL AST 16 (5-37) U/L ALT 10 (0-40) U/L Alkaline Phosphatase 59 (39-117) U/L C-Reactive Protein 0.62 H (< or = 0.50) mg/dL Total Protein 7.0 (6.5-8.0) g/dL Albumin 4.0 (3.5-5.0) g/dL COVID-19 (NAHUM) Negative (Negative) COVID-19 Clin Com See Note Independent Interpretation I performed an independent interpretation of an: Plain X-Ray Interpretation: No acute fracture on right knee x-ray, small effusion. Radiology Impression Discussion of test interpretation with radiology: I have reviewed the radiologist's reading. Radiologist Impression: IMPRESSION: 1. Soft tissue swelling with a small joint effusion. 2. No acute fracture or dislocation. 3. Mild degenerative changes. 4. Probable calcific quadriceps tendinitis. External Record Review External record reviewed: Inpatient record, Office record and Outpatient record Discharge Plan Discharge Clinical Impression: Effusion of right knee Instructions: Swollen Knee Joint (ED) Additional Instructions: You were evaluated in the emergency department today for right knee pain and swelling. Your x-ray did not show any evidence of fracture but did show a small amount of fluid in your knee joint. You were provided with an GAVI bandage in the emergency department today, we recommend that you use this and also keep your leg elevated when at rest to decrease this swelling. Follow up with orthopedics for further evaluation and management of your symptoms. You can take 650mg of Tylenol every 6 hours as needed for pain. return to the emergency department if you develop new redness, increased swelling, fever, worsening pain or any other new or concerning symptoms. Prescriptions: No Action aspirin 81 mg Tablet,Delayed Release (Dr/Ec) 81 mg PO DAILY@0800 furosemide 40 mg Tablet 40 mg PO DAILY@0800 atorvastatin 80 mg Tablet 80 mg PO DAILY@2000 allopurinol 100 mg tablet 100 mg PO DAILY@0800 tamsulosin 0.4 mg Capsule 0.4 mg PO DAILY@0800 docusate sodium 100 mg Capsule 100 mg PO BID PRN (Reason: Constipation) hydralazine 50 mg Tablet 50 mg PO TID@0800,1200,1999 Referrals: [facility] [Provider Group] - 1 week Clinical Impression: Effusion of right knee [facility] [address] [Outside] Interventions: ED Discharge Assessment Last Done: 06/23/25 15:27 Print Language: Bahraini
[2025-06-23 09:23] LABS: MANUAL DIFF FLAG NO
[2025-06-23 09:26] LABS: Hematocrit 38.5 % (42.0-52.0); Hemoglobin 12.5 g/dl (14.0-18.0); Imm Gran Abs Auto 0.03 X10*3/uL (0.00-0.03); Imm Gran Pct Auto 0.4 % (0.0-0.4); Lymphocytes Absolute Auto 1.2 X10*3/uL (1.2-4.9); Mean Corpuscular HGB Conc 32.5 g/dl (31.0-36.0); Mean Corpuscular Hemoglobin 30.7 pg (27.0-33.0); Mean Corpuscular Volume 94.6 fL (80.0-98.0); NRBC Abs Auto 0.000 X10*3/uL (0.0-0.012); NRBC Pct Auto 0.0 /100WBC (0.0-0.2); Platelet Count 167 X10*3/uL (160-400); Red Blood Count 4.07 X10*6/uL (4.60-5.80); White Blood Count 7.8 X10*3/uL (4.8-10.8)
[2025-06-23 09:45] LABS: Alanine Aminotransferase 10 U/L (0-40); Albumin Level 4.0 g/dL (3.5-5.0); Alkaline Phosphatase 59 U/L (39-117); Anion Gap 12 (12-20); Aspartate Amino Transferase 16 U/L (5-37); Blood Urea Nitrogen 27 mg/dL (9-16); Calcium 9.1 mg/dL (8.4-10.2); Carbon Dioxide 26 mmol/L (22-29); Chloride 108 mmol/L (96-108); Creatinine Clr Calc Pharmacy 35.9; Estimated Glomerular Filt Rate 47; Potassium 3.1 mmol/L (3.3-5.1); Sodium 143 mmol/L (135-145); Total Protein 7.0 g/dL (6.5-8.0)
[2025-06-23 10:03] LABS: Erythrocyte Sedimentation Rate 17 MM/HR (0-15)
[2025-06-23] MEDS: Potassium Chloride ER 20 MEQ TAB.ER.PRT PO (10:22)
--- NOTE | 2025-06-23 15:02 | PHA.MEDREC ---
Pharmacy Consult ? Medication Reconciliation Pharmacy has completed the medication reconciliation. List from facility
--- NOTE | 2025-06-23 18:46 | PC.NURSE ---
[facility], reporting right knee pain/swelling and hot to the touch X2 days, unable to ambulate (normally ambulates with walker). Plan was to d/c back to [facility] however, facility said they could not take him due to not being able to ambulate and get around on his own. Plan for PT/CM. Pt is alert and oriented, independent with eating, uses urinal at bedside.
--- NOTE | 2025-06-23 18:48 | PC.NURSE ---
Med rec done and meds continued by provider
--- NOTE | 2025-06-23 20:11 | PC.NURSE ---
This RN assumed pt care @ 1900. Pt a&ox4, no signs of distress. Pt reports 10/10 knee pain Pt medicated per mar Plan of care ongoing.
[2025-06-24] VITALS (8 sets, daily range): BP systolic 163–195; BP diastolic 67–99; PULSE 68–81; RESP 18; TEMP 36.3–36.9; O2SAT 93–98
--- NOTE | 2025-06-24 00:05 | PC.NURSE ---
Pt alert & oriented, resting in stretcher. Pt denies pain at this time. Respirations even and unlabored. Pt voided 400 mL clear, yellow urine in urinal. Pt watching tv. Call oliva within reach.
--- NOTE | 2025-06-24 06:08 | PC.NURSE ---
Pt reporting 5/10 right knee pain, requesting Tylenol. Pt medicated as charted.
[2025-06-24] MEDS: Aspirin Enteric Coated 81 MG TABLET.DR PO (07:19)
--- NOTE | 2025-06-24 09:31 | PC.NURSE ---
alert and oriented w/ even and unlabored respirations. ambulated w/ PT w/ walker. plan for short term rehab
[2025-06-24 10:11] LABS: IDNOW Serial# 6674DD1D
[2025-06-24 10:12] LABS: COVID-19 Test Negative (Negative)
--- NOTE | 2025-06-24 10:45 | MHC.CM.ED ---
Addendum entered by Nidia Dixon 06/24/25 11:30: Received notification that patient has [employer] ([id number]). Referral will be broadcasted locally for bed offers. Original Note: Received case management consult overnight. Patient came to the ER due to knee pain. Work up essentially negative. Physical therapy eval completed. Rehab is recommended. Patient lives at [facility]. Has [place]. Per Emy at [place], patient is not eligible for STR under the [facility]. Patient has Medicare ([id number]). Does not appear to have a qualifying stay. Referral will be sent to all 3 acute rehab facilities. Continue to monitor for d/c needs.
--- NOTE | 2025-06-24 13:50 | MHC.CM.ED ---
[facility] is willing to offer a bed. [facility]ira lopez [place] is still reviewing. Patient has been to [facility]. Met with patient to discuss d/c planning. [facility] is 1st choice. Waiting to hear if they can offer a bed. Continue to monitor for d/c needs.
--- NOTE | 2025-06-24 17:23 | PC.NURSE ---
Patient brought to Overflow 6 from main ED. Patient in hospital bed, repositioned. Increased difficulty ambulating, arrives from [facility]. Right knee pain/swelling, GAVI wrap in place. Patient is alert/oriented at this time, calm/cooperative. STR [facility] (see previous case management notes). Requested and given coffee and ice water. Awaiting dinner tray. Call oliva within reach, bed alarm on, lowest position, bed locked. Fall risk, wearing yellow socks. Care ongoing by this RN.
--- NOTE | 2025-06-24 17:57 | MHC.CM.ED ---
Pt accepted a bed at [facility]. Auth is pending. Pt has [employer]. Pt moved to overflow unit.
--- NOTE | 2025-06-24 19:18 | PC.NURSE ---
Hydralazine 50mg requested from pharmacy. Will administer upon arrival. Care ongoing by this RN.
--- NOTE | 2025-06-24 21:21 | PC.NURSE ---
Took over care from MISAEL Perez, medicated per sep, urinal emptied, 200cc output.
--- NOTE | 2025-06-24 22:07 | PC.NURSE ---
pt reposition resting in bed.
--- NOTE | 2025-06-24 23:29 | PC.NURSE ---
medicated per mar.
[2025-06-25 05:56] VITALS: BP 188/87; PULSE 74; RESP 20; TEMP 37.1; O2SAT 100
--- NOTE | 2025-06-25 06:49 | PC.NURSE ---
pt incontinent of urine and stool, complete bed change and rufus care.
[2025-06-25 08:38] VITALS: BP 180/80
[2025-06-25] MEDS: Aspirin Enteric Coated 81 MG TABLET.DR PO (08:38)
[2025-06-25 08:41] VITALS: BP 180/80
--- NOTE | 2025-06-25 09:33 | MHC.CM.ED ---
Insurance auth has been obtained by [facility] on [place]. [facility] booked for 11am. Med [facility] with chart. Patient, Amada DOUGLAS and Michi ART aware. Continue to monitor for d/c needs.
--- NOTE | 2025-06-25 11:10 | PC.NURSE ---
Telephone reprt to Jocelin DOUGLAS at [facility] [phone]
[2025-06-25 11:18] VITALS: BP 194/84; PULSE 72; RESP 20; TEMP 36.8; O2SAT 97
[2025-06-25 12:43] VITALS: BP 194/84; PULSE 72; RESP 20; TEMP 36.8; O2SAT 97
== END 2025-06-25 11:39 | disposition skilled nursing facility (03) ==
PROVIDERS: Registered Nurse Emergency; Emergency Provider Emergency Medicine Emergency Medical Services; PCP Hospitalist; Referring Provider Emergency Medicine Emergency Medical Services
DX: M25.461 Effusion, right knee (principal); Z91.013 Allergy to seafood
CPT/HCPCS: 36415; 73564; 80053; 85025; 85652; 86140; 87635; 97162; 99285

== ENCOUNTER → 2025-06-23 09:40 | Outpatient (BNV) | payer OTHER, SELFPAY | PROVIDERS: Emergency Provider Emergency Medicine Emergency Medical Services; PCP Hospitalist; Visit Provider Radiology Diagnostic Radiology | DX: M25.461 Effusion, right knee (principal); M79.89 Other specified soft tissue disorders; M17.11 Unilateral primary osteoarthritis, right knee | CPT/HCPCS: 73564 ==